=== PATIENT | male | born 1980 | race Caucasian/White ===

== ENCOUNTER → 2019-12-12 | Outpatient (CLI) | payer OTHER, SELFPAY ==
[2019-05-07 10:45] VITALS: BMI 24.1
== END | disposition home or self-care (01) ==
PROVIDERS: PCP Family Medicine; Referring Provider Family Medicine; Visit Provider Family Medicine
DX: B34.9 Viral infection, unspecified (principal)
CPT/HCPCS: 87635; U0003

== ENCOUNTER → 2022-07-14 | Outpatient (CLI) | payer OTHER, SELFPAY ==
--- NOTE | 2022-07-14 13:02 | US_ITS ---
STUDY: SUPERFICIAL ULTRASOUND - SOFT TISSUES OF THE NECK. REASON FOR EXAM: Male, 41 years old. Lump of neck-posterior TECHNIQUE: A superficial ultrasound was performed with real-time and static alvarez-scale imaging. COMPARISON: None. FINDINGS: The posterior aspect of the cervical region was examined with ultrasound. No sonographic abnormality is seen. US/Head/Neck Soft Tissue IMPRESSION: No sonographic abnormality is seen. Electronically Signed: Dwight Underwood MD at 15:25 EST ,
== END | disposition home or self-care (01) ==
LOC: US 13:00
PROVIDERS: PCP Family Medicine; Referring Provider Family Medicine; Visit Provider Family Medicine
DX: R22.1 Localized swelling, mass and lump, neck (principal)
CPT/HCPCS: 76536

== ENCOUNTER → 2025-03-18 | Outpatient (CLI) | payer OTHER, SELFPAY ==
[2025-03-18 14:17] LABS: Hematocrit 44.7 % (40-54); Hemoglobin 15.3 g/dL (13.0-16.5); Immature Granulocytes Count 0.010 X10^3/uL (0.0-0.0); Mean Corp Hgb Conc 34.2 g/dL (32-36); Mean Corpuscular Volume 87.3 fL (80-94); Mean Platelet Vol. 10.0 fl (6.2-12.0); NRBC Flagged by Analyzer 0 % (0-5); Platelet Count 219 K/mm3 (150-450); RBC Distribution Width CV 11.7 % (11.6-14.6); RBC Distribution Width SD 37.4 fl (35.1-43.9); Red Blood Count 5.12 M/mm3 (4.6-6.2); White Blood Count 5.3 K/mm3 (4.4-11.0)
[2025-03-18 15:03] LABS: AST(SGOT) 21 U/L (<=37); Alanine Aminotransfer ALT/SGPT 25 U/L (<=46); Albumin, Serum 4.1 g/dL (3.5-5.0); Alkaline Phosphatase 98 U/L (40-129); Anion Gap 9 (5-15); BUN 13 mg/dL (4-19); BUN/Creat Ratio 11.9 RATIO (10-20); Calcium,Total 9.0 mg/dL (7.6-11.0); Carbon Dioxide 26.5 mmol/L (21.0-32.0); Chloride 103 mmol/L (98-108); Globulin 2.7 g/dL (2.2-4.2); Glucose 103 mg/dL (70-99); Potassium 4.3 mmol/L (3.3-5.1); Vitamin B12 621 pg/mL (180-914); Vitamin D,25 Hydroxy 62.4 ng/mL (30-100)
[2025-03-20 18:08] LABS: Thyroglobulin, Serum Qt. 5.6 ng/mL (1.4-29.2)
== END | disposition home or self-care (01) ==
LOC: MFPLAB 11:33
PROVIDERS: PCP Family Medicine; Visit Provider Family Medicine
DX: R53.83 Other fatigue (principal)
CPT/HCPCS: 36415; 80053; 82306; 82607; 84432; 84439; 84443; 85025; 86800

== ENCOUNTER → 2025-04-23 | Outpatient (CLI) | payer OTHER, SELFPAY ==
--- NOTE | 2025-04-23 12:36 | US_ITS ---
PROCEDURE: THYROID 04/23/2025 REASON FOR EXAM: History of thyroid nodule. TECHNIQUE: Procedure Code: USTHY Modality: US Procedure: THYROID COMPARISON: None FINDINGS: Right thyroid lobe size: 4.9 cm 1.8 cm 2.3 cm. Left thyroid lobe size: 4.4 cm 1.8 cm 1.6 cm Isthmus: 0.2 cm Background parenchymal echotexture is homogeneous. Nodules: None US/Thyroid IMPRESSION: Normal thyroid sonogram. RECOMMENDATION: Based on most suspicious nodule. Nodule size = largest diameter Only evaluate nodule if =>5 mm. Growth > 20% in 2 dimensions = worsening. Follow up to 4 nodules. Recommend biopsy for no more than 2 nodules. Reading Location: [place] [id number]
--- OUTSIDE RECORDS SUMMARY | 2025-04-23 16:40 | XMS RPT_ITS | CCD ---
Author Organization [facility] Care Team Providers Care Coffee Roaster Name Role Phone TRIP LEO Referring Unavailable TRIP LEO Primary Care Unavailable ASH EVERETT Attending Unavailable Alex Flynn MD Primary Care [facility] er ALEX FLYNN Primary Care Unavailable GARY MORROW Attending Unavailable GARY MORROW Attending Unavailable ALEX FLYNN Primary Care Unavailable ALVA FLYNNIA Primary Care Unavailable GARY MORROW Attending Unavailable MARIA C TALAMANTES Attending Unavailable GARY MORROW Referring Unavailable ALEX FLYNN Primary Care Unavailable Trip Leo Primary Care Unavailable Bautista Selby Attending Unavailable Bautista Selby Referring Unavailable Bautista Selby Attending Unavailable Bautista Selby Primary Care Unavailable Allergies Allergy Classification Reported Allergen(s) Allergy Type Date of Onset Reaction(s) Facility (6 sources) Penicillins; Translations: [PENICILLINS] Propensity to adverse reactions to drug (disorder) 5 [facility] Repository Medications Current Medications Medication Drug Class(es) Dates Sig (Normalized) Sig (Original) diphenhydrAMINE hydrochloride 25 mg oral capsule (1 source) Histamine-1 Receptor Antagonist Start: 09-13-2021 take 1 capsule by mouth at bedtime Diphenhydramine Hcl (Benadryl) 25 mg capsule Active 25 MG PO AT BEDTIME September 12, 2021 11:00pm fexofenadine hydrochloride 60 mg oral tablet (4 sources) Histamine-1 Receptor Antagonist take 1 tablet by mouth in the morning fexofenadine ([place]ia Allergy) 60 MG tablet Take 1 tablet by mouth in the morning and 1 tablet in the evening. Active loratadine 10 mg oral tablet (4 sources) loratadine (Claritin) 10 MG tablet Take by mouth. Active MULTIPLE VITAMIN PO (4 sources) Start: 09-07-2022 MULTIPLE VITAMIN PO Take by mouth. 09/07/2022 Active Start: 09-07-2022 MULTIPLE VITAM IN PO Take by mouth. 0 09/07/2022 Active traZODone hydrochloride 50 mg oral tablet (8 sources) Serotonin Reuptake Inhibitor Start: 04-02-2024 End: 07-11-2025 take 3 tablets by mouth once daily traZODone (Desyrel) 50 MG tablet Indications: Primary insomnia Take 3 tablets (150 mg) by mouth Nightly. 270 tablet 1 01/12/2025 07/11/2025 Active Start: 03-28-2023 End: 04-02-2024 take 1 tablet by mouth once daily traZODone (Desyrel) 50 MG tablet Take 1 tablet (50 mg) by mouth Nightly. 30 tablet 2 06/28/2023 04/02/2024 Discontinued (Reorder) Completed/Discontinued Medications Medication Drug Class(es) Dates Sig (Normalized) Sig (Original) predniSONE 10 mg oral tablet (1 source) Start: 09-13-2021 End: 09-25-2021 Prednisone Discontinued 10 MG PO daily 30 September 12, 2021 11:00pm September 24, 2021 11:05pm Take 4 tabs once daily days 1-3 3 tabs once daily days 4-6 2 tabs once daily days 7-9 and 1 tab once daily days 10-12. terbinafine 250 mg oral tablet (2 sources) Allylamine Antifungal Start: 04-03-2024 End: 01-12-2025 take 1 tablet by mouth once daily terbinafine (LamISIL) 250 MG tablet Take 250 mg by mouth daily. 04/03/2024 01/12/2025 Discontinued (Therapy completed) Problems Problem Classification Problem Date Documented Da te Episodic/Chronic Anxiety disorders (2 sources) Anxiety disorder, unspecified; Translations: [Anxiety disorder, unspecified] Onset: 03-28-2023 Chronic Diabetes mellitus without complication (1 source) Other abnormal glucose; Translations: [Other abnormal glucose] Onset: 03-19-2025 Episodic Malaise and fatigue (1 source) Other fatigue; Translations: [Other fatigue] Onset: 11-08-2025 Episodic Miscellaneous mental health disorders (10 sources) Primary insomnia; Translations: [Primary insomnia] Onset: 03-28-2023 03-28-2023 Chronic Mood disorders (2 sources) Major depressive disorder, recurrent, mild; Translations: [Major depressive disorder, recurrent, mild (HCC)] Onset: 04-24-2024 Chronic Other upper respiratory disease (7 sources) Allergic rhinitis; Translations: [Allergic rhinitis, unspecified] Onset: 03-28-2023 03-28-2023 Chronic Other upper respiratory disease (2 sources) Allergic rhinitis, unspecified; Translations: [Allergic rhinitis, unspecified] Onset: 03-28-2023 Chronic Other upper respiratory infections (1 source) Upper respiratory infection; Translations: [Acute upper respiratory infection, unspecified] 05-07-2019 Episodic Unclassified (1 source) Contact dermatitis and other eczema, due to unspecified cause 09-13-2021 Results Test Name Value Interpretation Reference Range Facil ity Thyroglobulin w/Anti-TG ABon 03-20-2025 Anti-TG AB < 1.0 Normal 0.0-0.9 [facility] Comment on above: Result Comment: Thyr oglobulin Antibody measured by [facility] [place] Methodology It should be noted that the presence of thyroglobulin antibodies may not be pathogenic nor diagnostic, especially at very low levels. The assay rn clinical documentation specialist has found that four percent of individuals without evidence of thyroid disease or autoimmunity will have positive TgAb levels up to 4 IU/mL. Performed By: #### L 503.0106, L3300.6820, L506.1001 #### [facility] [address] [place] [address], [id number] THYROGLOB QUANT 5.6 ng/mL Normal 1.4-29.2 [facility] Comment on above: Result Comment: Acco rding to the National Academy of Clinical Biochemistry, the reference interval for Thyroglobulin (TG) should be related to euthyroid patients and not for patients who underwent thyroidectomy. TG reference intervals for these patients depend on the residual mass of the thyroid tissue left after surgery. Establishing a post-operative baseline is recommended. The assay limit of quantitation is 0.1 ng/mL Thyroglobulin measured by [employer] [facility] Performed at: [facility] [address] [id number] Junior Financial Analyst: Deion Craig PhD, Phone: [phone] Performed By: #### L 503.0106, L3300.6820, L506.1001 #### [facility] [address] [place], [address] CBC W/Diff, Automatedon 10- Absolute Lymph 1.88 X10 3/uL Normal 0.83-4.51 [facility] Comment on above: Order Comment: Order Date: 03/18/25 Order Info: 0184-1 - CBCD Performed By: #### L 100.0100, L506.0400, L500.4050, L501.9520 #### [facility] [address] [place], [address] Absolute Neut 2.8 X10 3/uL Normal 2.0-7.7 [facility] Comment on above: Order Comment: Order Date: 03/18/25 Order Info: 0184-1 - CBCD Performed By: #### L 100.0100, L506.0400, L500.4050, L501.9520 #### [facility] [address] [place], [address] Basophils/100 WBC (Bld) 0.6 % Normal 0-1 [facility] Comment on above: Order Comment: Order Date: 03/18/25 Order Info: 0184-1 - CBCD Performed By: #### L 100.0100, L506.0400, L500.4050, L501.9520 #### [facility] [address] [place], [address] Eosinophils/100 WBC (Bld) 3.0 % Normal 0-5 [facility] Comment on above: Order Comment: Order Date: 03/18/25 Order Info: 0184-1 - CBCD Performed By: #### L 100.0100, L506.0400, L500.4050, L501.9520 #### [facility] [address] [place], [address] Erythrocyte distribution width (RBC) [Ratio] 11.7 % Normal 11.6-14.6 [facility] Comment on above: Order Comment: Order Date: 03/18/25 Order Info: 0184-1 - CBCD Performed By: #### L 100.0100, L506.0400, L500.4050, L501.9520 #### [facility] [address] [place], [address] Hematocrit (Bld) [Volume fraction] 44.7 % Normal 40-54 [facility] Comment on above: Order Comment: Order Date: 03/18/25 Order Info: 0184- - CBCD Performed By: #### L 100.0100, L506.0400, L500.4050, L501.9520 #### [facility] [address] [place], [address] Hemoglobin (Bld) [Mass/Vol] 15.3 g/dL Normal 13.0-16.5 [facility] Comment on above: Order Comment: Order Date: 03/18/25 Order Info: 0184-1 - CBCD Performed By: #### L 100.0100, L506.0400, L500.4050, L501.9520 #### [facility] [address] [place], [address] IG% 0.200 Normal 0.0-0.9 [facility] Comment on above: Order Comment: Order Date: 03/18/25 Order Info: 0184-1 - CBCD Result Comment: IG% - Immature Granulocytes (promyelocytes, myelocytes and metamyelocytes) > 1% indicates that a LEFT SHIFT is Present. Performed By: #### L 100.0100, L506.0400, L500.4050, L501.9520 #### [facility] [address] [place], [address] Lymphocytes/100 WBC (Bld) 35.5 % Normal 19-41 [facility] Comment on above: Order Comment: Order Date: 03/18/25 Order Info: 018- - CBCD Performed By: #### L 100.0100, L506.0400, L500.4050, L501.9520 #### [facility] [address] [place], [address] MCH (RBC) [Entitic mass] 29.9 pg Normal 27.0-32.0 [facility] Comment on above: Order Comment: Order Date: 03/18/25 Order Info: 018- - CBCD Performed By: #### L 100.0100, L506.0400, L500.4050, L501.9520 #### [facility] [address] [place], [address] MCHC (RBC) [Mass/Vol] 34.2 g/dL Normal 32-36 [facility] Comment on above: Order Comment: Order Date: 03/18/25 Order Info: 018- - CBCD Performed By: #### L 100.0100, L506.0400, L500.4050, L501.9520 #### [facility] [address] [place], [address] MCV (RBC) [Entitic vol] 87.3 fL Normal 80-94 [facility] Comment on above: Order Comment: Order Date: 03/18/25 Order Info: 018- - CBCD Performed By: #### L 100.0100, L506.0400, L500.4050, L501.9520 #### [facility] [address] [place], [address] Monocytes/100 WBC (Bld) 8.3 % Normal 0-10 [facility] Comment on above: Order Comment: Order Date: 03/18/25 Order Info: 018- - CBCD Performed By: #### L 100.0100, L506.0400, L500.4050, L501.9520 #### [facility] [address] [place], [address] Neutrophils/100 WBC (Bld) 52.4 % Normal 47-70 [facility] Comment on above: Order Comment: Order Date: 03/18/25 Order Info: 0184-1 - CBCD Performed By: #### L 100.0100, L506.0400, L500.4050, L501.9520 #### [facility] [address] [place], [address] Nucleated RBC (Bld) [#/Vol] 0 10*3/uL Normal 0-5 [facility] Comment on above: Order Comment: Order Date: 03/18/25 Order Info: 0184- - CBCD Performed By: #### L 100.0100, L506.0400, L500.4050, L501.9520 #### [facility] [address] [place], [address] Platelet mean volume (Bld) [Entitic vol] 10.0 fL Normal 6.2-12.0 [facility] Comment on above: Order Comment: Order Date: 03/18/25 Order Info: 0184- - CBCD Performed By: #### L 100.0100, L506.0400, L500.4050, L501.9520 #### [facility] [address] [place], [address] Platelets (Bld) [#/Vol] 219 10*3/uL Normal 150-450 [facility] Comment on above: Order Comment: Order Date: 03/18/25 Order Info: 0184-1 - CBCD Performed By: #### L 100.0100, L506.0400, L500.4050, L501.9520 #### [facility] [address] [place], [address] RBC (Bld) [#/Vol] 5.12 10*6/uL Normal 4.6-6.2 [facility] Comment on above: Order Comment: Order Date: 03/18/25 Order Info: 0184-1 - CBCD Performed By: #### L 100.0100, L506.0400, L500.4050, L501.9520 #### [facility] [address] [place], [address] RDW SD 37.4 fl Normal 35.1-43.9 [facility] Comment on above: Order Comment: Order Date: 03/18/25 Order Info: 0184- - CBCD Performed By: #### L 100.0100, L506.0400, L500.4050, L501.9520 #### [facility] [address] [place], [address] WBC (Bld) [#/Vol] 5.3 10*3/uL Normal 4.4-11.0 [facility] Comment on above: Order Comment: Order Date: 03/18/25 Order Info: 0184-1 - CBCD Performed By: #### L 100.0100, L506.0400, L500.4050, L501.9520 #### [facility] [address] [place], [address] Comprehensive Metabolic Prof ilon 03-18-2025 Albumin [Mass/Vol] 4.1 g/dL Normal 3.5-5.0 [facility] Comment on above: Order Comment: Order Date: 03/18/25 Order Info: 0786-1 - CMP Order Info: 3016-3 - TSH Order Info: 3024-7 - T4F Performed By: #### L 100.0100, L506.0400, L500.4050, L501.9520 #### [facility] [address] [place], [address] Albumin/Globulin [Mass ratio] 1.6 {ratio} Normal 0.9-2.4 [facility] Comment on above: Order Comment: Order Date: 03/18/25 Order Info: 0786-1 - CMP Order Info: 3016-3 - TSH Order Info: 3023-7 - T4F Performed By: #### L 100.0100, L506.0400, L500.4050, L501.9520 #### [facility] [address] [place], [address] ALK PHOS 98 U/L Normal 40-129 [facility] Comment on above: Order Comment: Order Date: 03/18/25 Order Info: 0786-1 - CMP Order Info: 3 - TSH Order Info: 47 - T4F Performed By: #### L 100.0100, L506.0400, L500.4050, L501.9520 #### [facility] [address] [place], [address] ALT [Catalytic activity/Vol] 25 U/L Normal <=46 [facility] Comment on above: Order Comment: Order Date: 03/18/25 Order Info: 0786-1 - CMP Order Info: 3 - TSH Order Info: 7 - T4F Performed By: #### L 100.0100, L506.0400, L500.4050, L501.9520 #### [facility] [address] [place], [address] AST [Catalytic activity/Vol] 21 U/L Normal <=37 [facility] Comment on above: Order Comment: Order Date: 03/18/25 Order Info: 0786-1 - CMP Order Info: 3 - TSH Order Info: 4-7 - T4F Performed By: #### L 100.0100, L506.0400, L500.4050, L501.9520 #### [facility] [address] [place], [address] Bilirubin [Mass/Vol] 0.71 mg/dL Normal 0.00-1.30 [facility] Comment on above: Order Comment: Order Date: 03/18/25 Order Info: 0786-1 - CMP Order Info: 3 - TSH Order Info: 3024-7 - T4F Performed By: #### L 100.0100, L506.0400, L500.4050, L501.9520 #### [facility] [address] [place], [address] BUN/CRE 11.9 RATIO Normal 10-20 [facility] Comment on above: Order Comment: Order Date: 03/18/25 Order Info: 0786-1 - CMP Order Info: 3 - TSH Order Info: 7 - T4F Performed By: #### L 100.0100, L506.0400, L500.4050, L501.9520 #### [facility] [address] [place], [address] Calcium [Mass/Vol] 9.0 mg/dL Normal 7.6-11.0 [facility] Comment on above: Order Comment: Order Date: 03/18/25 Order Info: 0786 - CMP Order Info: 3015-07 - TSH Order Info: 3023-11 - T4F Performed By: #### L 100.0100, L506.0400, L500.4050, L501.9520 #### [facility] [address] [place], [address] Chloride [Moles/Vol] 103 mmol/L Normal 98-108 [facility] Comment on above: Order Comment: Order Date: 03/18/25 Order Info: 07861 - CMP Order Info: 3015-07 - TSH Order Info: 7 - T4F Performed By: #### L 100.0100, L506.0400, L500.4050, L501.9520 #### [facility] [address] [place], [address] CO2 [Moles/Vol] 26.5 mmol/L Normal 21.0-32.0 [facility] Comment on above: Order Comment: Order Date: 03/18/25 Order Info: 0786-1 - CMP Order Info: 3 - TSH Order Info: 3023-11 - T4F Performed By: #### L 100.0100, L506.0400, L500.4050, L501.9520 #### [facility] [address] [place], [address] Creatinine [Mass/Vol] 1.07 mg/dL Normal 0.70-1.20 [facility] Comment on above: Order Comment: Order Date: 03/18/25 Order Info: 0786-1 - CMP Order Info: 3015-07 - TSH Order Info: 3023-11 - T4F Performed By: #### L 100.0100, L506.0400, L500.4050, L501.9520 #### [facility] [address] [place], [address] GAP 9 Normal 5-15 [facility] Comment on above: Order Comment: Order Date: 03/18/25 Order Info: 0786- - CMP Order Info: 3015-07 - TSH Order Info: 3023-11 - T4F Performed By: #### L 100.0100, L506.0400, L500.4050, L501.9520 #### [facility] [address] [place], [address] GFR/1.73 sq M.predicted among non-blacks MDRD (S/P/Bld) [Vol rate/Area] 88 mL/min/{1.73_m2} Normal >60 [facility] Comment on above: Order Comment: Order Date: 03/18/25 Order Info: 0786-1 - CMP Order Info: 3 - TSH Order Info: 7 - T4F Result Comment: mL/m in/1.73m2 CKD-EPI Creatinine Equation (2020) Performed By: #### L 100.0100, L506.0400, L500.4050, L501.9520 #### [facility] [address] [place], [address] Globulin (S) [Mass/Vol] 2.7 g/dL Normal 2.2-4.2 [facility] Comment on above: Order Comment: Order Date: 03/18/25 Order Info: 0786-1 - CMP Order Info: 3 - TSH Order Info: 7 - T4F Performed By: #### L 100.0100, L506.0400, L500.4050, L501.9520 #### [facility] [address] [place], [address] Glucose [Mass/Vol] 103 mg/dL High 70-99 [facility] Comment on above: Order Comment: Order Date: 03/18/25 Order Info: 0786-1 - CMP Order Info: 3015-07 - TSH Order Info: 7 - T4F Performed By: #### L 100.0100, L506.0400, L500.4050, L501.9520 #### [facility] [address] [place], [address] Potassium [Moles/Vol] 4.3 mmol/L Normal 3.3-5.1 [facility] Comment on above: Order Comment: Order Date: 03/18/25 Order Info: 07-1 - CMP Order Info: 3 - TSH Order Info: 7 - T4F Performed By: #### L 100.0100, L506.0400, L500.4050, L501.9520 #### [facility] [address] [place], [address] Sodium [Moles/Vol] 138 mmol/L Normal 133-145 [facility] Comment on above: Order Comment: Order Date: 03/18/25 Order Info: 0786-1 - CMP Order Info: 3 - TSH Order Info: 7 - T4F Performed By: #### L 100.0100, L506.0400, L500.4050, L501.9520 #### [facility] [address] [place], [address] T PROT 6.8 g/dL Normal 5.9-8.4 [facility] Comment on above: Order Comment: Order Date: 03/18/25 Order Info: 0786-1 - CMP Order Info: 63 - TSH Order Info: 7 - T4F Performed By: #### L 100.0100, L506.0400, L500.4050, L501.9520 #### [facility] [address] [place], [address] Urea nitrogen [Mass/Vol] 13 mg/dL Normal 4-19 [facility] Comment on above: Order Comment: Order Date: 03/18/25 Order Info: 0786 - CMP Order Info: 3 - TSH Order Info: 7 - T4F Performed By: #### L 100.0100, L506.0400, L500.4050, L501.9520 #### [facility] [address] [place], [address] T4 Free Directon 03-18-2025 T4 FREE DIRECT 1.30 ng/dL Normal 0.76-1.46 [facility] Comment on above: Order Comment: Order Date: 03/18/25 Order Info: 0786- - CMP Order Info: 3 - TSH Order Info: 7 - T4F Performed By: #### L 100.0100, L506.0400, L500.4050, L501.9520 #### [facility] [address] [place], [address] Thyroid Stim Hormone (TSH)on 03-18-2025 TSH 2.050 uIU/mL Normal 0.300-4.200 [facility] Comment on above: Order Comment: Order Date: 03/18/25 Order Info: 0786-1 - CMP Order Info: 63 - TSH Order Info: 3027 - T4F Performed By: #### L 100.0100, L506.0400, L500.4050, L501.9520 #### [facility] [address] [place], [address] Vitamin B12on 03-18-2025 Cobalamin (Vitamin B12) [Mass/Vol] 621 pg/mL Normal 180-914 [facility] Comment on above: Order Comment: Order Date: 03/18/25 Order Info: 0786-1 - CMP Order Info: 3016-3 - TSH Order Info: 3023-11 - T4F Performed By: #### L 503.0106, L3300.6820, L506.1001 #### [facility] [address] [place], [place], [address] Vitamin D,25 Hydroxyon 03-18 Vitamin D 25-OH 62.4 ng/mL Normal 30-100 [facility] Comment on above: Order Comment: Order Date: 03/18/25 Order Info: 0786-1 - CMP Order Info: 6-3 - TSH Order Info: 3023-11 - T4F Result Comment: Rachel min D Status Deficiency: <20 ng/mL (50nmol/L) Insufficiency: 20-30 ng/mL (50-75 nmol/L) Sufficiency: 30-100 ng/mL (75-250 nmol/L) Toxicity: >100 ng/mL (>250 nmol/L) Performed By: #### L 503.0106, L3300.6820, L506.1001 #### [facility] [address] [place], [address] 37on 01-12-2025 37 YOUR APPOINTMENT TODAY WAS WITH THE [facility], COPD CLINIC, PULMONARY AND SLEEP MEDICINE OFFICE. PLEASE CALL OUR OFFICE AT [phone] for our [place] office location or [phone] for our [place] location, IF YOU HAVE NOT RECEIVED YOUR TEST RESULTS 7 DAYS AFTER TESTING IS COMPLETED. PLEASE REMEMBER TO REQUEST REFILLS AT YOUR OFFICE VISITS. PHONE/FAX REQUESTS REQUIRE 48-72 HOURS FOR RESPONSE. A FRIENDLY REMINDER COPAYS ARE DUE AT TIME OF SERVICE. THANK YOU. Our Patients Are Important! We want to improve and you can help. After your visit we want you to feel: Listened to, Respected and have your health care explained. You may receive a survey asking you about your visit. Please complete the survey. We will use your feedback to make improvements. COVID-19 VACCINATION INFORMATION: PH. [phone] [email or web address] US/VACCINE [facility] Scheduling [phone] [facility] [phone] [facility] Office Visiton 01-12-2025 Follow-up visit [id number] José Miguel Davis 1980 M Date Provider Department Center 01/12/2025 [id number]-T[facility]WJANGARY [facility] None Family History Problem Relation Age of Onset No Known Problems Mother No Known Problems Father Family Status - Relation Status Age at Mother Alive Father Alive Sister Alive Brother Alive Daughter Alive Son Alive Level of Service:34980 [place] OFFICE/OUTPATIENT ESTABLISHED MOD MDM 30 MIN Reason for Visit and Comments: 6 Month Follow Up [[id number]] - Insomnia [facility] Progress Noteon 01-12-2025 Progress Note [facility] [place] [address] [place] [address] , [address] [facility] [address] PH: [phone] Visit type: An Established patient 01/12/2025 CHIEF COMPLAINT/REASON FOR REFERRAL: Chief Complaint Patient presents with 6 Month Follow Up Insomnia History of Present Illness José Miguel Davis is a 44 y.o. male with long history of insomnia presents to the office currently on half 150 mg of trazodone at night, helps him to initiate and maintain sleep, no change in sleep habits Sleep history patient goes to bed around 9:30 PM, on average it takes him about 60 minutes to fall asleep. After falling asleep patient wakes up multiple times at night and has difficulty going back to sleep on occasions he has woken up around 2 AM in the morning, gotten up to get ready for work not realizing that it was 2 AM most of the days he wakes up at 6:30 in the morning., Works from 8 AM to 4:30 PM, feels sleepy in the afternoons but does not nap Pneumonia vaccine: Seasonal flu vaccine: 2023 COVID vaccine: 06/2021 RSV vaccine: ESS MMRC Dyspnea Scale: Grade Description of Breathlessness 0 I only get breathless with strenuous exercise. 1 I get short of breath when hurrying on level ground or walking up a slight hill. 2 On level ground, I walk slower than people of the same age because of breathlessness, or have to stop for breath when walking at my own pace. 3 I stop for breath after walking about 100 yards or after a few minutes on level ground. 4 I am too breathless to leave the house or I am breathless when dressing. PastMedical History Medical History[1] Past Surgical History Surgical History[2] Allergies Allergies[3] Medications Current Medications[4] Social History Social History Tobacco Use Smoking status: Never Smokeless tobacco: Never Substance Use Topics Alcohol use: Not on file FamilyHistory Family History[5] Review of Systems Review of Systems Psychiatric/Behavior al: Positive for sleep disturbance. Physical Exam Vitals: 01/12/25 0953 BP: 127/80 Pulse: 52 SpO2: 97% Weight: 196 lb (88.9 kg) Height: 5' 11 (1.803 m) Physical Exam Vitals reviewed. Constitutional: Appearance: Normal appearance. Cardiovascular: Rate and Rhythm: Normal rate and regular rhythm. Pulses: Normal pulses. Heart sounds: Normal heart sounds. Pulmonary: Effort: Pulmonary effort is normal. Breath sounds: Normal breath sounds. Musculoskeletal: Cervical back: Normal range of motion and neck supple. Neurological: Mental Status: He is alert. Psychiatric: Mood and Affect: Mood normal. Behavior: Behavior normal. Data Reviewed and Summarized LABS and Studies: Available studies were personally reviewed. Salient findings summarized in HPI & A/P Imaging: Available studies were personally reviewed. Salient findings summarized in HPI & A/P PFT's: Pulmonary Functions Testing Results: No results found for: FEV1, FVC, TDO4UIR, TLC, DLCO Assessment and Plan 1. Primary insomnia (Primary) [place] Sleepiness Scale is 3 out of 24 - traZODone (Desyrel) 50 MG tablet; Take 3 tablets (150 mg) by mouth Nightly. Dispense: 270 tablet; Refill: 1 2. Chronic allergic rhinitis Continue Libia Morrow MD Pulmonary, Critical Care, & Sleep Medicine Portions of the information within this encounter were entered using an electronic dictation system. Best attempts were made to edit/proofread the information prior to note completion. Despite the review of information, some errors may remain. If there are questions related to the information contained within the note please contact the [1] Past Medical History: Diagnosis Date Insomnia [2] Past Surgical History: Procedure Laterality Date VASECTOMY [3] Allergies Allergen Reactions Penicillins Rash Other reaction(s): Other (See Comments), Other (See Comments), PT UNSURE OF REACTION Told to avoid since he was younger not sure of reaction unknown [4] Current Outpatient Medications: fexofenadine (Libia Allergy) 60 MG tablet, Take 1 tablet by mouth in the morning and 1 tablet in the evening., Disp: , Rfl: loratadine (Claritin) 10 MG tablet, Take by mouth., Disp: , Rfl: MULTIPLE VITAMIN PO, Take by mouth., Disp: , Rfl: traZODone (Desyrel) 50 MG tablet, Take 3 tablets (150 mg) by mouth Nightly., Disp: 270 tablet, Rfl: 1 terbinafine (LamISIL) 250 MG tablet, Take 250 mg by mouth daily., Disp: , Rfl: [5] Family History Problem Relation Name Age of Onset No Known Problems Mother No Known Problems Father Normal [facility] 37on 07-14-2024 37 YOUR APPOINTMENT TODAY WAS WITH THE [facility], COPD CLINIC, PULMONARY AND SLEEP MEDICINE OFFICE. PLEASE CALL OUR OFFICE AT [phone] for our [place] office location or [phone] for our [place] location, IF YOU HAVE NOT RECEIVED YOUR TEST RESULTS 7 DAYS AFTER TESTING IS COMPLETED. PLEASE REMEMBER TO REQUEST REFILLS AT YOUR OFFICE VISITS. PHONE/FAX REQUESTS REQUIRE 48-72 HOURS FOR RESPONSE. A FRIENDLY REMINDER COPAYS ARE DUE AT TIME OF SERVICE. THANK YOU. Our Patients Are Important! We want to improve and you can help. After your visit we want you to feel: Listened to, Respected and have your health care explained. You may receive a survey asking you about your visit. Please complete the survey. We will use your feedback to make improvements. COVID-19 VACCINATION INFORMATION: PH. [phone] [email or web address] US/VACCINE [facility] Scheduling [phone] [facility] [phone] [facility] Office Visiton 07-14-2024 Follow-up visit [id number] José Miguel Davis 1980 M Date Provider Department Center 07/14/2024 [id number]-MGEXVALGARY MORROW [facility]UL[facility] None Family History Problem Relation Age of Onset No Known Problems Mother No Known Problems Father Family Status - Relation Status Age at Mother Alive Father Alive Sister Alive Brother Alive Daughter Alive Son Alive Level of Service:53554 SC OFFICE/OUTPATIENT ESTABLISHED MOD MDM 30 MIN Reason for Visit and Comments: 3 Month Follow Up [[id number]] - Insomnia Normal [facility] Progress Noteon 07-14-2024 Progress Note [facility] Pul[facility] and [facility] Medicine [address] , [address] [facility] [address] PH: [phone] Visit type: An Established patient 07/14/2024 CHIEF COMPLAINT/REASON FOR REFERRAL: Chief Complaint Patient presents with 3 Month Follow Up Insomnia History of Present Illness José Miguel Davis is a 43 y.o. male with long history of insomnia presents to the office currently on 150 mg of trazodone at night for sleep feels that this dose of trazodone is helping him to initiate and maintain sleep Sleep history patient goes to bed around 9:30 PM, on average it takes him about 60 minutes to fall asleep. After falling asleep patient wakes up multiple times at night and has difficulty going back to sleep on occasions he has woken up around 2 AM in the morning, gotten up to get ready for work not realizing that it was 2 AM most of the days he wakes up at 6:30 in the morning., Works from 8 AM to 4:30 PM, feels sleepy in the afternoons but does not nap MMRC Dyspnea Scale: Grade Description of Breathlessness 0 I only get breathless with strenuous exercise. 1 I get short of breath when hurrying on level ground or walking up a slight hill. 2 On level ground, I walk slower than people of the same age because of breathlessness, or have to stop for breath when walking at my own pace. 3 I stop for breath after walking about 100 yards or after a few minutes on level ground. 4 I am too breathless to leave the house or I am breathless when dressing. PastMedical History Past Medical History: Diagnosis Date Insomnia Past Surgical History Past Surgical History: Procedure Laterality Date VASECTOMY Allergies Allergies Allergen Reactions Penicillins Rash Other reaction(s): Other (See Comments), Other (See Comments), PT UNSURE OF REACTION Told to avoid since he was younger not sure of reaction unknown Medications Current Outpatient Medications: fexofenadine (Libia Allergy) 60 MG tablet, Take 1 tablet by mouth in the morning and 1 tablet in the evening., Disp: , Rfl: loratadine (Claritin) 10 MG tablet, Take by mouth., Disp: , Rfl: MULTIPLE VITAMIN PO, Take by mouth., Disp: , Rfl: terbinafine (LamISIL) 250 MG tablet, Take 250 mg by mouth daily., Disp: , Rfl: traZODone (Desyrel) 50 MG tablet, Take 3 tablets (150 mg) by mouth Nightly., Disp: 30 tablet, Rfl: 2 Social History Social History Tobacco Use Smoking status: Never Smokeless tobacco: Never Substance Use Topics Alcohol use: Not on file FamilyHistory Family History Problem Relation Name Age of Onset No Known Problems Mother No Known Problems Father Review of Systems Review of Systems Constitutional: Negative. HENT: Negative. Eyes: Negative. Respiratory: Negative. Endocrine: Negative. Genitourinary: Negative. Allergic/Immunologic : Positive for environmental allergies. Psychiatric/Behavior al: Negative for suicidal ideas. Physical Exam Vitals: 07/14/24 1131 BP: 118/77 Pulse: 56 SpO2: 97% Weight: 201 lb (91.2 kg) Height: 5' 11 (1.803 m) Physical Exam Vitals reviewed. Constitutional: Appearance: Normal appearance. HENT: Head: Normocephalic and atraumatic. Eyes: Extraocular Movements: Extraocular movements intact. Pupils: Pupils are equal, round, and reactive to light. Cardiovascular: Rate and Rhythm: Normal rate and regular rhythm. Pulmonary: Effort: No respiratory distress. Breath sounds: No wheezing or rales. Neurological: Mental Status: He is alert. Psychiatric: Mood and Affect: Mood normal. Behavior: Behavior normal. Thought Content: Thought content normal. Judgment: Judgment normal. Data Reviewed and Summarized LABS and Studies: Available studies were personally reviewed. Salient findings summarized in HPI & A/P Imaging: Available studies were personally reviewed. Salient findings summarized in HPI & A/P PFT's: Pulmonary Functions Testing Results: No results found for: FEV1, FVC, VBH7WML, TLC, DLCO Assessment and Plan 1. Primary insomnia (Primary) Refill trazodone patient was also referred to behavioral sleep medicine for CBT-I 2. Chronic allergic rhinitis Continue Libia Morrow MD Pulmonary, Critical Care, & Sleep Medicine Portions of the information within this encounter were entered using an electronic dictation system. Best attempts were made to edit/proofread the information prior to note completion. Despite the review of information, some errors may remain. If there are questions related to the information contained within the note please contact the [facility] Office Visiton 04-24-2024 Follow-up visit [id number] José Miguel Davis 1980 M Date Provider Department Center 04/24/2024 [id number]-KMARIA C [facility] None Family History Problem Relation Age of Onset No Known Problems Mother No Known Problems Father Family Status - Relation Status Age at Mother Alive Father Alive Sister Alive Brother Alive Daughter Alive Son Alive Level of Service:48158 SC PSYCHIATRIC DIAGNOSTIC EVAL W/MEDICAL SERVICES Reason for Visit and Comments: Anxiety [9] Establish Care [42] [facility] Progress Noteon 04-24-2024 Progress Note Visit date: 04/24/24 José Miguel Davis 1980 Subjective: Chief Complaint Patient presents with Anxiety Establish Care Patient has been seen by Dr. Morrow. Patient has disrupted sleep. He wakes feeling that he needs to go do something or be somewhere. Years ago he would leave the home. Patient is actually awake when he feels this way. He will have a dream and then awake and then wonder if the dream is true. Patient even without trazodone feels weird dreams. Weird dreams with trouble distinguishing reality thereafter - occurring about 1.5 yrs. Always has had sleep issues since childhood however. Patient got up one time and went to work - then realized the time and went home. Never dangerous to self / others during these episodes. And he is always awake. Just trying to convince himself of reality. It is pretty quick after this occurs that he goes back to sleep. Patient likes trazodone and feels it works fine / is effective. Last time he felt such a described episode - 3 to 4 weeks ago and then trazodone was increase. Mood is good other than weather. Patient thinks he has been mildly depressed in the past. He does consider that he has a seasonal mood shift - not wanting to do anything. He has tried a gym membership. Patient thinks he was depressed as a kid / had periods of being down. Depression symptoms: Mood is numb at times (noted this started in mid March) Lacks motivation, interest, energy. He has enough work ethic to continue with that but it can be a struggle. Not enjoying things as well. Change in appetite - less Isolating. Patient's notes and encouraged pt to come today. Never SI / HI (verifies no thoughts of not wanting to live as well). Inquired more than once given documentation of 04/02/24 in the emr. Anxiety related symptoms: Patient has worry - seasonally during busy time of yr. Tends to email himself thoughts or if he recalls a name. Patient worries about letting someone down and always wonders if he forgot something. He checks to make sure that he has not forgotten something. A beer could calm him in the busy spells. Anxiety probably results in concentration issues Physical feelings / reactions to anxiety - sometimes he may get stomach cramps from anxiety. No big stressors right now. Does worry about his kids as a father. No SI. Other / Psychiatric History Current medications for mental health: trazodone Medication trials for mental health in the past: denies Hospital admissions for mental health -NA History of suicide attempts - NA History of more than 1 depressive episode - yes History of cutting behaviors / eating disorders - denies History of araceli / hypomania - denies Trauma history / history of PTSD type features - none other than daughter was diagnosed with type I diabetes History of checking behaviors, rituals, obsessions, compulsion - denies excessive checking. History of psychosis - NA Access to firearms? Denies (locked up in a safe). Guns - deer lino. 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 Together 19 yrs. Family/Social Relations - Patient has a 15 yr daughter, 13 and 10 yr old sons. Patient is happily . Family life is good. Family life was also good as a kid. He grew up in [place]. He has a brother and sister, they are close. They are a quiet family. He is financially good. 2019 - grandfather . After grandfather passed alcohol use turned into once per day. He quit that daily use other than for holidays etc. Every 2 yrs thereafter he lost other grandparents. P. Grandmother is still alive. Anglican/Spiritual Beliefs - Islam Motivation against self harm - janes / family ROS: Patient has been trying to lose weight. Also lacks appetite. No physical concerns No h/o seizures. Past Medical History: Diagnosis Date Insomnia Past Surgical History: Procedure Laterality Date VASECTOMY Allergies Allergen Reactions Penicillins Rash Other reaction(s): Other (See Comments), Other (See Comments), PT UNSURE OF REACTION Told to avoid since he was younger not sure of reaction unknown Objective: Recent vital signs noted from a provider appt on 04/02/24 Mental Status Exam: Appearance - Patient appears as stated age and healthy. Wearing ball cap and glasses Demeanor - calm and pleasant Activity - wnl Eye Contact - good Speech / language - wnl Mood - appears to be euthymic at this time of visit Affect - full Thought Process - organized Thought Content - wnl. No evidence of SI / HI / psychosis. Patient is future oriented Judgement - good Insight - good Orientation - alert and oriented in all spheres Attention / concentration - pt is attentive Memory and cognition - no obvious deficits noted in (more content not included)... Normal [facility] 37on 04-02-2024 37 YOUR APPOINTMENT TODAY WAS WITH THE [facility], COPD CLINIC, PULMONARY AND SLEEP MEDICINE OFFICE. PLEASE CALL OUR OFFICE AT [phone] for our [place] office location or [phone] for our [place] location, IF YOU HAVE NOT RECEIVED YOUR TEST RESULTS 7 DAYS AFTER TESTING IS COMPLETED. PLEASE REMEMBER TO REQUEST REFILLS AT YOUR OFFICE VISITS. PHONE/FAX REQUESTS REQUIRE 48-72 HOURS FOR RESPONSE. A FRIENDLY REMINDER COPAYS ARE DUE AT TIME OF SERVICE. THANK YOU. Our Patients Are Important! We want to improve and you can help. After your visit we want you to feel: Listened to, Respected and have your health care explained. You may receive a survey asking you about your visit. Please complete the survey. We will use your feedback to make improvements. COVID-19 VACCINATION INFORMATION: PH. [phone] HEALTH.[email or web address] US/VACCINE [facility] Scheduling [phone] [facility] [phone] Normal [facility] Office Visiton 04-02-2024 Follow-up visit [id number] José Miguel Davis 1980 M Date Provider Department Center 04/02/2024 [id number]-PNBCBWRGARY RICHTER [facility]MGMIT[facility]ULM None Family History Problem Relation Age of Onset No Known Problems Mother No Known Problems Father Family Status - Relation Status Age at Mother Father Level of Service:43575 SC OFFICE/OUTPATIENT ESTABLISHED MOD MDM 30 MIN Reason for Visit and Comments: Follow-up [218328] - 1 year insomnia Normal [facility] Progress Noteon 04-02-2024 Progress Note [facility] Pul[facility] [place] Medicine [address] [facility] [address] PH: [phone] Visit type: An Established patient 04/02/2024 CHIEF COMPLAINT/REASON FOR REFERRAL: Chief Complaint Patient presents with Follow-up 1 year insomnia History of Present Illness José Miguel Davis is a 43 y.o. male with long history of insomnia presents for follow-up currently on 100 mg of trazodone Sleep history patient goes to bed around 9:30 PM, on average it takes him about 60 minutes to fall asleep. After falling asleep patient wakes up multiple times at night and has difficulty going back to sleep on occasions he has woken up around 2 AM in the morning, gotten up to get ready for work not realizing that it was 2 AM most of the days he wakes up at 6:30 in the morning., Works from 8 AM to 4:30 PM, feels sleepy in the afternoons but does not nap MMRC Dyspnea Scale: Grade Description of Breathlessness 0 I only get breathless with strenuous exercise. 1 I get short of breath when hurrying on level ground or walking up a slight hill. 2 On level ground, I walk slower than people of the same age because of breathlessness, or have to stop for breath when walking at my own pace. 3 I stop for breath after walking about 100 yards or after a few minutes on level ground. 4 I am too breathless to leave the house or I am breathless when dressing. PastMedical History History reviewed. No pertinent past medical history. Past Surgical History History reviewed. No pertinent surgical history. Allergies Allergies Allergen Reactions Penicillins Rash Other reaction(s): Other (See Comments), Other (See Comments), PT UNSURE OF REACTION Told to avoid since he was younger not sure of reaction unknown Medications Current Outpatient Medications: fexofenadine (Libia Allergy) 60 MG tablet, Take 1 tablet by mouth in the morning and 1 tablet in the evening., Disp: , Rfl: loratadine (Claritin) 10 MG tablet, Take by mouth., Disp: , Rfl: MULTIPLE VITAMIN PO, Take by mouth., Disp: , Rfl: traZODone (Desyrel) 50 MG tablet, Take 3 tablets (150 mg) by mouth Nightly., Disp: 30 tablet, Rfl: 2 Social History Social History Tobacco Use Smoking status: Never Smokeless tobacco: Never Substance Use Topics Alcohol use: Not on file FamilyHistory Family History Problem Relation Name Age of Onset No Known Problems Mother No Known Problems Father Review of Systems Review of Systems Constitutional: Negative. HENT: Negative. Eyes: Negative. Respiratory: Negative. Endocrine: Negative. Genitourinary: Negative. Allergic/Immunologic : Positive for environmental allergies. Psychiatric/Behavior al: Positive for suicidal ideas. Physical Exam Vitals: 04/02/24 1213 BP: 130/89 Pulse: 59 SpO2: 96% Weight: 195 lb 6.4 oz (88.6 kg) Height: 5' 11 (1.803 m) Physical Exam Vitals reviewed. Constitutional: Appearance: Normal appearance. HENT: Head: Normocephalic and atraumatic. Eyes: Extraocular Movements: Extraocular movements intact. Pupils: Pupils are equal, round, and reactive to light. Cardiovascular: Rate and Rhythm: Normal rate and regular rhythm. Pulmonary: Effort: No respiratory distress. Breath sounds: No wheezing or rales. Neurological: Mental Status: He is alert. Psychiatric: Mood and Affect: Mood normal. Behavior: Behavior normal. Thought Content: Thought content normal. Judgment: Judgment normal. Data Reviewed and Summarized LABS and Studies: Available studies were personally reviewed. Salient findings summarized in HPI & A/P Imaging: Available studies were personally reviewed. Salient findings summarized in HPI & A/P PFT's: Pulmonary Functions Testing Results: No results found for: FEV1, FVC, AFB9KWT, TLC, DLCO Assessment and Plan 1. Primary insomnia (Primary) Increase trazodone to 150 mg nightly, referred to sleep psychologist for CBT-I - [facility]; Future 2. Chronic allergic rhinitis Continue as needed [id number] Libia Morrow MD Pulmonary, Critical Care, & Sleep Medicine Portions of the information within this encounter were entered using an electronic dictation system. Best attempts were made to edit/proofread the information prior to note completion. Despite the review of information, some errors may remain. If there are questions related to the information contained within the note please contact the [facility] 36on 03-24-2024 36 LVM for pt to return call to schedule appt. [facility] 36 Name of Caller: José Miguel Contact Reason for Appointment: Follow up Office Name: [facility] Progress Noteon 10-13-2022 House Rn Authentication Interface Message Text José Miguel is a 41 y.o. male who presents to our office today for a history over a year of a history of some dermatitis on his hands and also on his chest and where he scratched, he had red lines and this happened in [place] and he came home and went to an Urgent Care when he returned from [place]. He was seen by Jojo Steward a year ago and was told to do Claritin 40mg daily and no other findings. Overall, he is improved and he now does Claritin as needed. His has a several year history of skin inflammation at times and this was before the hives and dermatographism. His history is unremarkable for recurrent upper or lower respiratory symptoms or for otherwise needing allergy medications. His history is unremarkable for food issues. -He presents by himself for evaluation Environmental Survey/Social History: Lives with spouse and 3 kids. Special Needs: None Preferred Language: Swedish Pets: Yes: 1 dog School/Daycare: Yes: works outside, consult with farmers about crops. Smoking/Alcohol/Drug Use or Exposure: No Recreational Activities/Sports: No Review of Systems/Past Medical History: Constitutional: denies fever, chills, weight loss. Eyes: denies vision changes, color blindness. Ears, nose throat and mouth: see narrative above. No recurrent nasal or sinus type symptoms. Respiratory: denies wheezing, cough or chest tightness/ see above narrative. Gastrointestinal: denies diarrhea, constipation, emesis. Genitourinary: denies dysuria or urine odor. Skin/integumentary: denies nail changes or other rash. Neurologic: denies seizures, weakness or speech problems. Hematologic/lymphati c: denies pallor. Allergic/Immunologic : see narrative above. No food issues. *Regarding bee stings, no issues (he has been stung). No past medical history on file. No past surgical history on file. Current Outpatient Medications Medication Sig Dispense Refill loratadine (CLARITIN) 10 MG tablet Take by mouth No current facility-administere d medications for this visit. No family history on file. Allergies: NKDA (told to avoid PCN when younger, not sure why). PE: Nursing note and Vital signs reviewed. Resp 16 Ht 180.3 cm Wt 83.9 kg BMI 25.80 kg/m Constitutional: He was awake, alert and in no apparent distress. Conjunctivae: clear. Nasal mucosa: normal Nasal turbinates: normal. No polyps visualized. Tympanic membranes: clear. Throat: clear. He did not have cervical adenopathy. Lungs: clear to auscultation bilaterally. Cardio: regular rate and rhythm. Musculoskeletal: good upper extremity strength bilaterally. Neuro: oriented to time and place, good interaction. Skin: upper extremities clear at this visit. No hives at this visit. Epicutaneous testing to multiple environmental allergens revealed good controls and José Miguel was completely negative. 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 Currently, laboratory studies do not appear to be indicated. Environmental allergen testing was negative and the results correlate with his history. The benefits, side effects of the treatment and treatment alternatives were discussed. Plan Please see information on urticaria (www.AAAAI.org and www.[email or web address].org). Most likely, you are experiencing chronic, idiopathic/spontaneo us urticaria and dermatographism and an exact cause may not be found and most likely a food is not involved with this process. -In these instances, one is not contagious, is not having a true allergic reaction, is not predisposed to anaphylaxis and an EpiPen is not usually indicated. -In the majority of patients, this improves at some point but I am not sure when this will be and once it subsides, it may return at some point without an exact cause. 2. On 10/13/22, you were tested to cat, dog, dust mite, cockroach, mouse, molds and tree, grass, weed and ragweed and corn pollen and you were negative. -You do not appear to have any environmental allergies. 3. For your skin symptoms/hives, may try the following regimen: A. OTC Fexofenadine (Libia) 180mg at 1 tablet up to twice a day. B. May add in OTC Pepcid (famotidine) 20mg at 1 tablet twice a day. C. OTC Benadryl (Diphenhydramine) 25mg at 1-2 tablets at bedtime as needed. 4. For now, I could have you return as needed. Normal [facility] Vital Signs Date Time Vital Sign Value Performing Clinician Faci lity 01-12-2025 09:53-0400 Body height 180.3 cm Gary Morrow MD Work Phone: [facility] 01-12-2025 09:53-0400 Body mass index (BMI) [Ratio] 27.34 kg/m2 Gary Morrow MD Work Phone: [facility] 01-12-2025 09:53-0400 Body weight 88.91 kg Gary Morrow MD Work Phone: [employer] 01-12-2025 09:53-0400 Diastolic blood pressure 80 mm[Hg] Gary Morrow MD Work Phone: [employer] 01-12-2025 09:53-0400 Heart rate 52 /min Gary Morrow MD Work Phone: [employer] 01-12-2025 09:53-0400 SaO2% (BldA) [Mass fraction] 97 % Gary Morrow MD Work Phone: [facility] 01-12-2025 09:53-0400 Systolic blood pressure 127 mm[Hg] Gary Morrow MD Work Phone: [facility] 07-14-2024 11:31-0500 Body height 180.3 cm Gary Morrow MD Work Phone: [facility] 07-14-2024 11:31-0500 Body mass index (BMI) [Ratio] 28.03 kg/m2 Gary Morrow MD Work Phone: [facility] 07-14-2024 11:31-0500 Body weight 91.17 kg Gary Morrow MD Work Phone: [facility] 07-14-2024 11:31-0500 Diastolic blood pressure 77 mm[Hg] Gary Morrow MD Work Phone: [facility] 07-14-2024 11:31-0500 Heart rate 56 /min Gary Morrow MD Work Phone: [facility] 07-14-2024 11:31-0500 SaO2% (BldA) [Mass fraction] 97 % Gary Morrow MD Work Phone: [facility] 07-14-2024 11:31-0500 Systolic blood pressure 118 mm[Hg] Gary Morrow MD Work Phone: [facility] 04-02-2024 12:13-0500 Body height 180.3 cm Gary Morrow MD Work Phone: [employer] 04-02-2024 12:13-0500 Body mass index (BMI) [Ratio] 27.25 kg/m2 Gary Morrow MD Work Phone: [facility] 04-02-2024 12:13-0500 Body weight 88.63 kg Gary Morrow MD Work Phone: [facility] 04-02-2024 12:13-0500 Diastolic blood pressure 89 mm[Hg] Gary Morrow MD Work Phone: [facility] 04-02-2024 12:13-0500 Heart rate 59 /min Gary Morrow MD Work Phone: [facility] 04-02-2024 12:13-0500 SaO2% (BldA) [Mass fraction] 96 % Gary Morrow MD Work Phone: [facility] 04-02-2024 12:13-0500 Systolic blood pressure 130 mm[Hg] Gary Morrow MD Work Phone: [facility] Encounters Encounter Date Encounter Type Care Provider Facility Start: 03-20-2025 ambulatory Bautista Selby Facilit y:[facility] Start: 03-18-2025 End: 03-18-2025 ambulatory Trip Leo Facility:[facility] Start: 01-12-2025 End: 01-12-2025 Office outpatient visit 25 minutes Gary Morrow MD Work Phone: [facility] [employer] Comment on above: Primary insomnia (Pr imary Dx); Chronic allergic rhinitis Start: 01-12-2025 End: 01-12-2025 ambulatory ALEX FLYNN [facility] Start: 07-14-2024 End: 07-14-2024 ambulatory VALENTINMARANDA RIGOBERTO [facility] Start: 07-14-2024 End: 07-14-2024 Office outpatient visit 25 minutes Gary Morrow MD Work Phone: [facility] [employer] Comment on above: Primary insomnia (Pr imary Dx); Chronic allergic rhinitis Start: 04-24-2024 End: 04-24-2024 ambulatory MARIA C TALAMANTES [facility] Start: 04-02-2024 End: 04-02-2024 Office outpatient visit 25 minutes Gary Morrow MD Work Phone: [facility] [employer] Comment on above: Primary insomnia (Pr imary Dx); Chronic allergic rhinitis Start: 04-02-2024 End: 04-02-2024 ambulatory ALEX FLYNN [facility] Start: 06-28-2023 Refill Gary marsh MD Work Phone: [facility] Start: 10-13-2022 End: 10-13-2022 ambulatory TRIP [facility] Start: 07-14-2022 End: 07-14-2022 ambulatory [facility] Work Phone: Start: 07-14-2022 End: 07-14-2022 Patient encounter procedure [facility], [facility] Procedures Date Procedure Procedure Detail Performing Clinician Start: 07-14-2022 Ultrasonography of t hyroid and parathyroid Plan of Treatment Date Care Activity Detail Author Start: 2056 RSV Immunization for Adults (1 - 1-dose 75+ series) RSV Immunization for Adults (1 - 1-dose 75+ series) [facility] Start: 2041 RSV Immunization aged 60 or older (1 - 1-dose 60+ series) RSV Immunization aged 60 or older (1 - 1-dose 60+ series) [facility] Start: 10-15-2031 Zoster Vaccines (1 of 2) Zoster Vaccines (1 of 2) [facility] Start: 04-17-2027 DTaP/Tdap/Td Vaccines (2 - Td or Tdap) DTaP/Tdap/Td Vaccines (2 - Td or Tdap) [facility] Start: 01-19-2025 Influenza vaccination Influenza Vaccine (#1) [facility] Start: 01-12-2025 End: 01-12-2025 Patient encounter procedure 01/12/2025 10:00 AM EDT Office Visit [facility] Pulmonary and Sleep Medicine [facility] [address] [place] [address] Gary Morrow MD [address] [place] [address] [id number] [facility] Pulmonary [facility] Sleep Medicine [facility] Start: 07-14-2024 End: 07-14-2024 Patient encounter procedure 07/14/2024 11:30 AM EST Office Visit [facility] Pulmonary [facility] Sleep Medicine [facility] [address] [place] [facility] [place] [address] Gary Morrow MD [address] [place] [id number] [facility] Pulmonary [facility] Sleep Medicine [facility] Start: 01-20-2024 COVID-19 Vaccine ( season) COVID-19 Vaccine ( season) [facility] Start: 01-20-2024 Influenza vaccination Influenza Vaccine (#1) [facility] Start: 01-19-2023 COVID-19 Vaccine ( season) COVID-19 Vaccine ( season) [facility] Start: 01-19-2023 Influenza vaccination Influenza Vaccine (#1) [facility] Start: 05-10-2009 MMR Vaccines (1 of 1 - Standard series) MMR Vaccines (1 of 1 - Standard series) [facility] Start: 05-10-2009 Varicella vaccination [facility] Start: 2000 Hepatitis B Vaccines (1 of 3 - 19+ 3-dose series) Hepatitis B Vaccines (1 of 3 - 19+ 3-dose series) [facility] Start: 10-15-1999 Diabetes mellitus screening Diabetes Screening [facility] Start: 10-15-1999 Hepatitis C screening Hepatitis C Screening [facility] Start: 1993 Depression Monitoring Depression Monitoring [facility] Start: 1993 Depression Screening Depression Screening [facility] Start: 1981 Hepatitis B Vaccines (1 of 3 - 3-dose series) Hepatitis B Vaccines (1 of 3 - 3-dose series) [facility] Start: 1981 HIV screening HIV Screening [facility] Start: 1981 Lipid panel Lipid Panel [facility] Immunizations Immunization Date Immunization Notes Care Provider Fa cili 03-18-2020 influenza, injectable,quadrivalent , preservative free, [facility]-18-2020 influenza virus vaccine, unspecified formulation Gary Morrow MD Work Phone: [facility] Payers Date Payer Category Payer Self-pay [id number] 2024 Commercial Indemnity [id number] 2024 Commercial Managed C are - O [facility] [id number] 2024 Unknown [id number] 2024 Unknown [id number] 2022 Commercial Managed C are - O [employer] [id number] 2022 Unknown [facility] [employer] [id number] 2022-Present [address] [place] [address] Commercial [id number] 2022 Unknown [id number] 1981 Unknown [id number] Unknown [facility] [id number] Unknown [id number] Unknown [id number] Unknown [id number] Social History Date Type Detail Facility Start: 09-13-2021 Tobacco smoking stat [facility] Unknown if ever smoked [facility] Start: 1980 Sex Assigned At Male [facility] Start: 03-28-2023 Tobacco smoking stat [facility] Never smoked tobacco [facility] Start: 03-28-2023 Tobacco use and exposure Smokeless tobacco non-user [facility] Start: 03-28-2023 End: 01-12-2025 History of Social function [facility] Start: 03-28-2023 End: 01-12-2025 Tobacco use panel [facility] Start: 1980 Sex Assigned At Not on file [facility] Start: 03-26-2023 Sex Male (finding) [facility] Clinical Notes 06-28-2023 to 01-12-2025 Gary Morrow MD - 01/12/2025 10:00 AM EDTPatient InstructionsGary Morrow MD - 07/14/2024 11:30 AM ESTPatient InstructionsGary Morrow MD - 04/02/2024 12:15 PM ESTPatient Instructions Note Date & Type Note Facility 01-12-2025 History of Presen t illness Narrative Images from the original note were not included. [facility] [address] [place] [address] , [place] [address] PH: [phone] Visit type: An Established patient 01/12/2025 CHIEF COMPLAINT/REASON FOR REFERRAL: Chief Complaint Patient presents with 6 Month Follow Up Insomnia History of Present Illness José Miguel Davis is a 44 y.o. male with long history of insomnia presents to the office currently on half 150 mg of trazodone at night, helps him to initiate and maintain sleep, no change in sleep habits Sleep history patient goes to bed around 9:30 PM, on average it takes him about 60 minutes to fall asleep. After falling asleep patient wakes up multiple times at night and has difficulty going back to sleep on occasions he has woken up around 2 AM in the morning, gotten up to get ready for work not realizing that it was 2 AM most of the days he wakes up at 6:30 in the morning., Works from 8 AM to 4:30 PM, feels sleepy in the afternoons but does not nap Pneumonia vaccine: Seasonal flu vaccine: 2023 COVID vaccine: 06/2021 RSV vaccine: ESS [facility] Dyspnea Scale: Grade Description of Breathlessness 0 I only get breathless with strenuous exercise. 1 I get short of breath when hurrying on level ground or walking up a slight hill. 2 On level ground, I walk slower than people of the same age because of breathlessness, or have to stop for breath when walking at my own pace. 3 I stop for breath after walking about 100 yards or after a few minutes on level ground. 4 I am too breathless to leave the house or I am breathless when dressing. PastMedical History Medical History[1] Past Surgical History Surgical History[2] Allergies Allergies[3] Medications Current Medications[4] Social History Social History Tobacco Use Smoking status: Never Smokeless tobacco: Never Substance Use Topics Alcohol use: Not on file FamilyHistory Family History[5] Review of Systems Review of Systems Psychiatric/Behavioral: Positive for sleep disturbance. Physical Exam Vitals: 01/12/25 0953 BP: 127/80 Pulse: 52 SpO2: 97% Weight: 196 lb (88.9 kg) Height: 5' 11 (1.803 m) Physical Exam Vitals reviewed. Constitutional: Appearance: Normal appearance. Cardiovascular: Rate and Rhythm: Normal rate and regular rhythm. Pulses: Normal pulses. Heart sounds: Normal heart sounds. Pulmonary: Effort: Pulmonary effort is normal. Breath sounds: Normal breath sounds. Musculoskeletal: Cervical back: Normal range of motion and neck supple. Neurological: Mental Status: He is alert. Psychiatric: Mood and Affect: Mood normal. Behavior: Behavior normal. Data Reviewed and Summarized LABS and Studies: Available studies were personally reviewed. Salient findings summarized in HPI & A/P Imaging: Available studies were personally reviewed. Salient findings summarized in HPI & A/P PFT's: Pulmonary Functions Testing Results: No results found for: FEV1, FVC, ZKO1VOG, TLC, DLCO Assessment and Plan 1. Primary insomnia (Primary) [place] Sleepiness Scale is 3 out of 24 - traZODone (Desyrel) 50 MG tablet; Take 3 tablets (150 mg) by mouth Nightly. Dispense: 270 tablet; Refill: 1 2. Chronic allergic rhinitis Continue Libia Morrow MD Pulmonary, Critical Care, & Sleep Medicine Portions of the information within this encounter were entered using an electronic dictation system. Best attempts were made to edit/proofread the information prior to note completion. Despite the review of information, some errors may remain. If there are questions related to the information contained within the note please contact the [1] Past Medical History: Diagnosis Date Insomnia [2] Past Surgical History: Procedure Laterality Date VASECTOMY [3] Allergies Allergen Reactions Penicillins Rash Other reaction(s): Other (See Comments), Other (See Comments), PT UNSURE OF REACTION Told to avoid since he was younger not sure of reaction unknown [4] Current Outpatient Medications: fexofenadine (Libia Allergy) 60 MG tablet, Take 1 tablet by mouth in the morning and 1 tablet in the evening., Disp: , Rfl: loratadine (Claritin) 10 MG tablet, Take by mouth., Disp: , Rfl: MULTIPLE VITAMIN PO, Take by mouth., Disp: , Rfl: traZODone (Desyrel) 50 MG tablet, Take 3 tablets (150 mg) by mouth Nightly., Disp: 270 tablet, Rfl: 1 terbinafine (LamISIL) 250 MG tablet, Take 250 mg by mouth daily., Disp: , Rfl: [5] Family History Problem Relation Name Age of Onset No Known Problems Mother No Known Problems Father documented in this encounter [facility] 01-12-2025 Instructions Dionne Diaz MA - 01/12/2025 10:00 AM EDT YOUR APPOINTMENT TODAY WAS WITH THE [facility], COPD CLINIC, PULMONARY AND SLEEP MEDICINE OFFICE. PLEASE CALL OUR OFFICE AT [phone] for our [place] office location or [phone] for our [place] location, IF YOU HAVE NOT RECEIVED YOUR TEST RESULTS 7 DAYS AFTER TESTING IS COMPLETED. PLEASE REMEMBER TO REQUEST REFILLS AT YOUR OFFICE VISITS. PHONE/FAX REQUESTS REQUIRE 48-72 HOURS FOR RESPONSE. A FRIENDLY REMINDER COPAYS ARE DUE AT TIME OF SERVICE. THANK YOU. Our Patients Are Important! We want to improve and you can help. After your visit we want you to feel: Listened to, Respected and have your health care explained. You may receive a survey asking you about your visit. Please complete the survey. We will use your feedback to make improvements. COVID-19 VACCINATION INFORMATION: PH. [phone] [email or web address] [facility] [phone] [facility] [phone] documented in this encounter [facility] 07-14-2024 History of Presen t illness Narrative Images from the original note were not included. [facility] Medicine [address] [place] [address] PH: [phone] Visit type: An Established patient 07/14/2024 CHIEF COMPLAINT/REASON FOR REFERRAL: Chief Complaint Patient presents with 3 Month Follow Up Insomnia History of Present Illness José Miguel Davis is a 43 y.o. male with long history of insomnia presents to the office currently on 150 mg of trazodone at night for sleep feels that this dose of trazodone is helping him to initiate and maintain sleep Sleep history patient goes to bed around 9:30 PM, on average it takes him about 60 minutes to fall asleep. After falling asleep patient wakes up multiple times at night and has difficulty going back to sleep on occasions he has woken up around 2 AM in the morning, gotten up to get ready for work not realizing that it was 2 AM most of the days he wakes up at 6:30 in the morning., Works from 8 AM to 4:30 PM, feels sleepy in the afternoons but does not nap [facility] Dyspnea Scale: Grade Description of Breathlessness 0 I only get breathless with strenuous exercise. 1 I get short of breath when hurrying on level ground or walking up a slight hill. 2 On level ground, I walk slower than people of the same age because of breathlessness, or have to stop for breath when walking at my own pace. 3 I stop for breath after walking about 100 yards or after a few minutes on level ground. 4 I am too breathless to leave the house or I am breathless when dressing. PastMedical History Past Medical History: Diagnosis Date Insomnia Past Surgical History Past Surgical History: Procedure Laterality Date VASECTOMY Allergies Allergies Allergen Reactions Penicillins Rash Other reaction(s): Other (See Comments), Other (See Comments), PT UNSURE OF REACTION Told to avoid since he was younger not sure of reaction unknown Medications Current Outpatient Medications: fexofenadine (Libia Allergy) 60 MG tablet, Take 1 tablet by mouth in the morning and 1 tablet in the evening., Disp: , Rfl: loratadine (Claritin) 10 MG tablet, Take by mouth., Disp: , Rfl: MULTIPLE VITAMIN PO, Take by mouth., Disp: , Rfl: terbinafine (LamISIL) 250 MG tablet, Take 250 mg by mouth daily., Disp: , Rfl: traZODone (Desyrel) 50 MG tablet, Take 3 tablets (150 mg) by mouth Nightly., Disp: 30 tablet, Rfl: 2 Social History Social History Tobacco Use Smoking status: Never Smokeless tobacco: Never Substance Use Topics Alcohol use: Not on file FamilyHistory Family History Problem Relation Name Age of Onset No Known Problems Mother No Known Problems Father Review of Systems Review of Systems Constitutional: Negative. HENT: Negative. Eyes: Negative. Respiratory: Negative. Endocrine: Negative. Genitourinary: Negative. Allergic/Immunologic: Positive for environmental allergies. Psychiatric/Behavioral: Negative for suicidal ideas. Physical Exam Vitals: 07/14/24 1131 BP: 118/77 Pulse: 56 SpO2: 97% Weight: 201 lb (91.2 kg) Height: 5' 11 (1.803 m) Physical Exam Vitals reviewed. Constitutional: Appearance: Normal appearance. HENT: Head: Normocephalic and atraumatic. Eyes: Extraocular Movements: Extraocular movements intact. Pupils: Pupils are equal, round, and reactive to light. Cardiovascular: Rate and Rhythm: Normal rate and regular rhythm. Pulmonary: Effort: No respiratory distress. Breath sounds: No wheezing or rales. Neurological: Mental Status: He is alert. Psychiatric: Mood and Affect: Mood normal. Behavior: Behavior normal. Thought Content: Thought content normal. Judgment: Judgment normal. Data Reviewed and Summarized LABS and Studies: Available studies were personally reviewed. Salient findings summarized in HPI & A/P Imaging: Available studies were personally reviewed. Salient findings summarized in HPI & A/P PFT's: Pulmonary Functions Testing Results: No results found for: FEV1, FVC, [id number], TLC, DLCO Assessment and Plan 1. Primary insomnia (Primary) Refill trazodone patient was also referred to behavioral sleep medicine for CBT-I 2. Chronic allergic rhinitis Continue Libia Morrow MD Pulmonary, Critical Care, & Sleep Medicine Portions of the information within this encounter were entered using an electronic dictation system. Best attempts were made to edit/proofread the information prior to note completion. Despite the review of information, some errors may remain. If there are questions related to the information contained within the note please contact the documented in this encounter [facility] 07-14-2024 Instructions Dionne Diaz MA - 07/14/2024 11:30 AM EST YOUR APPOINTMENT TODAY WAS WITH THE [facility], COPD CLINIC, PULMONARY AND SLEEP MEDICINE OFFICE. PLEASE CALL OUR OFFICE AT [phone] for our [facility] location or [phone] for our [place] location, IF YOU HAVE NOT RECEIVED YOUR TEST RESULTS 7 DAYS AFTER TESTING IS COMPLETED. PLEASE REMEMBER TO REQUEST REFILLS AT YOUR OFFICE VISITS. PHONE/FAX REQUESTS REQUIRE 48-72 HOURS FOR RESPONSE. A FRIENDLY REMINDER COPAYS ARE DUE AT TIME OF SERVICE. THANK YOU. Our Patients Are Important! We want to improve and you can help. After your visit we want you to feel: Listened to, Respected and have your health care explained. You may receive a survey asking you about your visit. Please complete the survey. We will use your feedback to make improvements. COVID-19 VACCINATION INFORMATION: PH. [phone] [email or web address] [facility] [phone] [facility] [phone] documented in this encounter [facility] 04-16-2024 Note L/m on v/m regarding your referral from 03/2024 for Psychiatry services. Please return my call to [phone] to discuss your referral. [facility] 04-02-2024 History of Presen t illness Narrative Images from the original note were not included. [facility] Pul[facility] Medicine [address] [facility] [address] PH: [phone] Visit type: An Established patient 04/02/2024 CHIEF COMPLAINT/REASON FOR REFERRAL: Chief Complaint Patient presents with Follow-up 1 year insomnia History of Present Illness José Miguel Davis is a 43 y.o. male with long history of insomnia presents for follow-up currently on 100 mg of trazodone Sleep history patient goes to bed around 9:30 PM, on average it takes him about 60 minutes to fall asleep. After falling asleep patient wakes up multiple times at night and has difficulty going back to sleep on occasions he has woken up around 2 AM in the morning, gotten up to get ready for work not realizing that it was 2 AM most of the days he wakes up at 6:30 in the morning., Works from 8 AM to 4:30 PM, feels sleepy in the afternoons but does not nap [facility] Dyspnea Scale: Grade Description of Breathlessness 0 I only get breathless with strenuous exercise. 1 I get short of breath when hurrying on level ground or walking up a slight hill. 2 On level ground, I walk slower than people of the same age because of breathlessness, or have to stop for breath when walking at my own pace. 3 I stop for breath after walking about 100 yards or after a few minutes on level ground. 4 I am too breathless to leave the house or I am breathless when dressing. PastMedical History History reviewed. No pertinent past medical history. Past Surgical History History reviewed. No pertinent surgical history. Allergies Allergies Allergen Reactions Penicillins Rash Other reaction(s): Other (See Comments), Other (See Comments), PT UNSURE OF REACTION Told to avoid since he was younger not sure of reaction unknown Medications Current Outpatient Medications: fexofenadine (Libia Allergy) 60 MG tablet, Take 1 tablet by mouth in the morning and 1 tablet in the evening., Disp: , Rfl: loratadine (Claritin) 10 MG tablet, Take by mouth., Disp: , Rfl: MULTIPLE VITAMIN PO, Take by mouth., Disp: , Rfl: traZODone (Desyrel) 50 MG tablet, Take 3 tablets (150 mg) by mouth Nightly., Disp: 30 tablet, Rfl: 2 Social History Social History Tobacco Use Smoking status: Never Smokeless tobacco: Never Substance Use Topics Alcohol use: Not on file FamilyHistory Family History Problem Relation Name Age of Onset No Known Problems Mother No Known Problems Father Review of Systems Review of Systems Constitutional: Negative. HENT: Negative. Eyes: Negative. Respiratory: Negative. Endocrine: Negative. Genitourinary: Negative. Allergic/Immunologic: Positive for environmental allergies. Psychiatric/Behavioral: Positive for suicidal ideas. Physical Exam Vitals: 04/02/24 1213 BP: 130/89 Pulse: 59 SpO2: 96% Weight: 195 lb 6.4 oz (88.6 kg) Height: 5' 11 (1.803 m) Physical Exam Vitals reviewed. Constitutional: Appearance: Normal appearance. HENT: Head: Normocephalic and atraumatic. Eyes: Extraocular Movements: Extraocular movements intact. Pupils: Pupils are equal, round, and reactive to light. Cardiovascular: Rate and Rhythm: Normal rate and regular rhythm. Pulmonary: Effort: No respiratory distress. Breath sounds: No wheezing or rales. Neurological: Mental Status: He is alert. Psychiatric: Mood and Affect: Mood normal. Behavior: Behavior normal. Thought Content: Thought content normal. Judgment: Judgment normal. Data Reviewed and Summarized LABS and Studies: Available studies were personally reviewed. Salient findings summarized in HPI & A/P Imaging: Available studies were personally reviewed. Salient findings summarized in HPI & A/P PFT's: Pulmonary Functions Testing Results: No results found for: FEV1, FVC, HUP9DUF, TLC, DLCO Assessment and Plan 1. Primary insomnia (Primary) Increase trazodone to 150 mg nightly, referred to sleep psychologist for CBT-I - [facility]; Future 2. Chronic allergic rhinitis Continue as needed [id number] Libia Morrow MD Pulmonary, Critical Care, & Sleep Medicine Portions of the information within this encounter were entered using an electronic dictation system. Best attempts were made to edit/proofread the information prior to note completion. Despite the review of information, some errors may remain. If there are questions related to the information contained within the note please contact the documented in this encounter [facility] 04-02-2024 Instructions Dionne Diaz MA - 04/02/2024 12:15 PM EST YOUR APPOINTMENT TODAY WAS WITH THE [facility], COPD CLINIC, PULMONARY AND SLEEP MEDICINE OFFICE. PLEASE CALL OUR OFFICE AT [phone] for our [place] office location or [phone] for our [place] location, IF YOU HAVE NOT RECEIVED YOUR TEST RESULTS 7 DAYS AFTER TESTING IS COMPLETED. PLEASE REMEMBER TO REQUEST REFILLS AT YOUR OFFICE VISITS. PHONE/FAX REQUESTS REQUIRE 48-72 HOURS FOR RESPONSE. A FRIENDLY REMINDER COPAYS ARE DUE AT TIME OF SERVICE. THANK YOU. Our Patients Are Important! We want to improve and you can help. After your visit we want you to feel: Listened to, Respected and have your health care explained. You may receive a survey asking you about your visit. Please complete the survey. We will use your feedback to make improvements. COVID-19 VACCINATION INFORMATION: PH. [phone] [email or web address] [facility] Scheduling [phone] [facility] Sched[facility] [phone] documented in this encounter [facility] 06-28-2023 Telephone encount er Note Pharmacy requesting refill on trazodone Last visit 03/28/2023 Next visit none made Script from 03/28/23 Pulled and pended [facility] 06-28-2023 Miscellaneous Notes Formattin g of this note might be different from the original. Pharmacy requesting refill on trazodone Last visit 03/28/2023 Next visit none made Script from 03/28/23 Pulled and pended documented in this encounter [facility] Evaluation note No assessment inform ation available [facility] Work Phone: Evaluation note Diagnosis Primary insomnia- Primary Persistent disorder of initiating or maintaining sleep Chronic allergic rhinitis [facility] Diagnosis Primary insomnia- Primary Persistent disorder of initiating or maintaining sleep Chronic allergic rhinitis [facility] Diagnosis Primary insomnia- Primary Persistent disorder of initiating or maintaining sleep Chronic allergic rhinitis documented in this encounter [facility] Chief Complaint and Reason for Visit Chief Complaint NODULE Summary Purpose Family History No Family History Records FoundNo Family History Records FoundNo Family History Records Found Advance Directives No Advanced Directives Records FoundNo Advanced Directives Records FoundNo Advanced Directives Records Found Additional Source Comments Care Teams (unrecognized sec tion and content) Team Status: Active Member Role Status Dates Dr. Bautista Dillard MD Family Provider Active Trip Leo DO Primary Care Provider Active Team Status: Inactive Member Role Status Dates Trip Leo DO Primary Care Provi dexter, Attending Provider, Referring Provider Active Coffee Roaster Relationship Specialty Start Date End Date Alex Flynn MD [address] [place] [phone] PCP - General Family Medicine 03/28/23 Coffee Roaster Relationship Specialty Start Date End Date Alex Flynn MD [address] [place] [phone] PCP - General Family Medicine 03/28/23 Coffee Roaster Relationship Specialty Start Date End Date Alex Flynn MD [address] [place] [phone] PCP - General Family Medicine 03/28/23 Coffee Roaster Relationship Specialty Start Date End Date Alex Flynn MD [address] [place] [phone] PCP - General Family Medicine 03/28/23 Goals (unrecognized section and content) Goals may be documented in a n alternate section (unrecognized sect ion and content) No Status Records FoundNo Status Records FoundNo Status Records Found INFORMATION SOURCE (unrecogn ized section and content) DATE CREATED AUTHOR 01/18/2023 [facility] DATE CREATED AUTHOR AUTHOR'S ORGANIZ ATION 01/13/2025 [facility] DATE CREATED AUTHOR AUTHOR'S ORGANIZ ATION 03/29/2025 [facility] Reason for Visit (unrecogniz ed section and content) Reason Comments Med Refill Trazodone Reason Comments Follow-up 1 year insomnia Reason Comments 3 Month Follow Up Insomnia Reason Comments 6 Month Follow Up Insomnia FOR RECORDS PERTAINING TO PATIENTS WHO ARE OR HAVE BEEN ENROLLED IN A CHEMICAL DEPENDENCY/SUBSTANCEABUSE PROGRAM, SOME INFORMATION MAY BE OMITTED. This clinical summary was aggregated from multiple sources. Caution should be exercised in using it in the provision of clinical care. This summary normalizes information from multiple sources, and as a consequence, information in this document may materially change the coding, format and clinical context of patient data. In addition, data may be omitted in some cases. CLINICAL DECISIONS SHOULD BE BASED ON THE PRIMARY CLINICAL RECORDS. [employer] provides no warranty or guarantee of the accuracy or completeness of information in this document.
== END | disposition home or self-care (01) ==
LOC: US 12:34
PROVIDERS: PCP Family Medicine; Referring Provider Family Medicine; Visit Provider Family Medicine
DX: E04.1 Nontoxic single thyroid nodule (principal)
CPT/HCPCS: 76536